=== PATIENT | female | born 1980 | race Caucasian/White ===

== ENCOUNTER 2019-06-08 09:09 | Emergency (ER) | payer OTHER ==
[~2019-06-08] VITALS: Ht 170.2 cm; Wt 72.7 kg
[2019-06-08 09:23] VITALS: BP 114/84
[2019-06-08] MEDS ORDERED: DEXAMETHASONE 4 MG TABLET ONE (09:58)
[2019-06-08] MEDS ORDERED: KETOROLAC 30 MG/1 ML ONE (09:58)
[2019-06-08] MEDS ORDERED: KETOROLAC 30 MG/1 ML IM ONE (10:00)
[2019-06-08] MEDS ORDERED: DEXAMETHASONE 4 MG TABLET PO ONE (10:00)
[2019-06-08 10:38] LABS: RAPID INFLUENZA A Negative (Negative); RAPID INFLUENZA B Negative (Negative)
--- NOTE | 2019-06-08 11:10 | NUR ---
Patient given discharge instructions and they have confirmed that they understand the instructions. Patient ambulatory with steady gait.
== END 2019-06-08 11:11 | disposition home or self-care (01) ==
LOC: ED 11:05
DX: J02.9 Acute pharyngitis, unspecified (principal); M79.10 Myalgia, unspecified site; R50.81 Fever presenting with conditions classified elsewhere
CPT/HCPCS: 71046; 87081; 87400; 87880; 96372; 99284; J1885